=== PATIENT | female | born 1950 | race Two or more races ===

== ENCOUNTER 2023-11-29 17:20 | Emergency (ER) | payer MEDICAID ==
[~2023-11-29] VITALS: Ht 149.9 cm; Wt 76.0 kg
[2023-11-29] MEDS: methylPREDNISolone SOD SUCC 125 MG/2 ML VL IM ONE (17:43)
[2023-11-29] MEDS: ALBUTEROL SULF 2.5 MG/0.5ML(0.5%) NEB SOLN NEB ONE (17:49)
[2023-11-29] MEDS: IPRATROPIUM BROM 0.5 MG/2.5ML INH SOL NEB ONE (17:50)
[2023-11-29] MEDS: HYDROcodone-ACET 10/325MG TAB PO ONE (18:04)
[2023-11-29] MEDS ORDERED: ALBU108A5 IN (19:46)
[2023-11-29 19:54] VITALS: BP 136/83; PULSE 82; RESP 18; TEMP 97.8; O2SAT 95
== END 2023-11-29 19:56 | disposition home or self-care (01) ==
LOC: ER 17:20
DX: J06.9 Acute upper respiratory infection, unspecified (principal); T36.0X5A Adverse effect of penicillins, initial encounter; J45.909 Unspecified asthma, uncomplicated; Y92.89 Other specified places as the place of occurrence of the external cause
CPT/HCPCS: 71045; 94640; 96372; 99283; J2930; J7644